=== PATIENT | male | born 1960 | race Hispanic/Latino ===

== ENCOUNTER 2019-04-10 08:44 | Outpatient (CLI) | payer OTHER ==
[2019-04-10] MEDS ORDERED: Gadobenate Dimeglumine 529 MG/1 ML (20ML VIAL) ONE (11:03)
--- NOTE | 2019-04-10 13:22 | MRI ---
EXAM: MRI of the brain without and with contrast HISTORY: Meningioma COMPARISON: 11/22/2018 TECHNIQUE: Multiplanar multisequence MR images were obtained of the brain without and with IV contras t. FINDINGS: There is a stable enhancing extra-axial lesion along the left frontal convexity measuring 12 mm x 5 m m in size. This has a hypointense nonenhancing center. This center restricts diffusion. The brain otherwise demonstrates normal signal intensity on all obtained sequences. No hydronephrosis. No extra-axial fluid collection or intracranial hemorrhage. The expected flow voids are present. Corpus callosum, pituitary, and craniocervical junction are within normal limits. The calvarium and overlying soft tissues are unremarkable. The paranasal sinuses and mastoid air cells are well aerated. IMPRESSION: Stable left frontal extra-axial lesion
== END 2019-04-10 08:45 | disposition home or self-care (01) ==
LOC: MRI 08:44
PROVIDERS: ATTEND Neurological Surgery
DX: D49.6 Neoplasm of unspecified behavior of brain (principal); G93.89 Other specified disorders of brain
CPT/HCPCS: 70553; A9577